=== PATIENT | male | born 1955 | race Caucasian/White ===

== ENCOUNTER 2017-10-22 16:23 | Emergency (ER) | payer OTHER ==
[~2017-10-22] VITALS: Ht 175.3 cm; Wt 86.2 kg
[~2017-10-22 16:23] MED LIST: ALTACE10 MG PO; ASPIR 8181 MG PO; CENTRUM SILVER1 EAC2 PO; CRESTOR10 MG PO; EFFIENT10 MG PO; FISH OIL 1,001000 M2 PO; PRILOSEC OTC20 MG PO; ZETIA10 MG PO
[2017-10-22] MEDS ORDERED: ZANTAC 150MG T150 MG PO (16:36)
[2017-10-22] MEDS ORDERED: NORVASC5 MG PO (16:37)
[2017-10-22 16:42] LABS: ABSOLUTE LYMPHOCYTES 1.5 thou/uL (0.8-5.3); ABSOLUTE MONOCYTES 0.4 thou/uL (0.0-1.2); BASOPHILS 0.6 %; EOSINOPHILS 0.4 %; HEMATOCRIT 45.6 % (42.0-52.0); HEMOGLOBIN 15.3 gm/dL (14.0-18.0); LYMPHOCYTES 21.5 %; MCH 30.1 pg (26.0-34.0); MCHC 33.5 g/dL (28.0-37.0); MCV 89.9 fL (80.0-100.0); MONOCYTES 5.4 %; MPV 8.5 fl. (7.2-11.1); NUCLEATED RBCS 0 /100WBC; PLATELET COUNT* 246 thou/uL (150-400); POLYS 72.1 %; RBC 5.07 mil/uL (4.50-6.00); RDW-CV 13.6 % (10.5-14.5)
[2017-10-22 16:51] LABS: ANION GAP 8 mmol/L (7-16); BUN 8 mg/dL (7-18); CALCIUM 9.5 mg/dL (8.5-10.1); CHLORIDE 103 mmol/L (98-107); CO2 31 mmol/L (21-32); CREATININE 1.1 mg/dL (0.6-1.3); GLUCOSE 100 mg/dL (70-99); POTASSIUM 3.6 mmol/L (3.5-5.1); SODIUM 142 mmol/L (136-145)
[2017-10-22 17:00] LABS: APTT 28.5 Seconds (25.0-31.3)
[2017-10-22 17:06] LABS: ALBUMIN 4.5 g/dL (3.4-5.0); ALKALINE PHOSPHATASE 89 U/L (46-116); LIPASE 182 U/L (73-393); MAGNESIUM 2.3 mg/dL (1.8-2.4); NT-PRO BRAIN NAT PEPTIDE 64 pg/mL (<300); SGOT 21 U/L (15-37); SGPT 31 U/L (30-65); TOTAL BILIRUBIN 0.5 mg/dL (<0.1-1.0); TOTAL PROTEIN 8.4 g/dL (6.4-8.2); TROPONIN-I LEVEL <0.06 ng/mL (<0.06)
[2017-10-22] MEDS ORDERED: NITROGLYCERIN0.4 MG SUBLING (17:26)
[2017-10-22 17:31] VITALS: BP 129/74
--- NOTE | 2017-10-23 11:17 | EKG ---
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
== END 2017-10-22 17:33 | disposition home or self-care (01) ==
LOC: M.ERS 16:23
PROVIDERS: Family Medicine
DX: R07.89 Other chest pain (principal); F10.99 Alcohol use, unspecified with unspecified alcohol-induced disorder; I10 Essential (primary) hypertension; Z88.5 Allergy status to narcotic agent

== ENCOUNTER → 2017-12-06 | Outpatient (CLI) | payer OTHER ==
[~2017-12-06] MED LIST changes: +NITROGLYCERIN0.4 MG SUBLING; +NORVASC5 MG PO; +ZANTAC 150MG T150 MG PO
== END ==
LOC: M.NUC 12:02
DX: R10.11 Right upper quadrant pain (principal)

== ENCOUNTER 2018-09-04 23:49 | Emergency (ER) | payer OTHER ==
[~2018-09-04] VITALS: Ht 175.3 cm; Wt 90.7 kg
[~2018-09-04 23:49] MED LIST changes: -PERCOCET 7.5-31 EACH PO; -ZETIA10 MG
[2018-09-05] MEDS ORDERED: ZETIA10 MG (00:04)
[2018-09-05 00:09] LABS: ABSOLUTE BASOPHILS 0.1 thou/uL (0.0-0.2); ABSOLUTE LYMPHOCYTES 2.2 thou/uL (0.8-5.3); ABSOLUTE MONOCYTES 0.8 thou/uL (0.0-1.2); ABSOLUTE NEUTROPHILS 8.3 thou/uL (1.6-8.1); BASOPHILS 0.8 %; EOSINOPHILS 0.4 %; HEMATOCRIT 42.4 % (42.0-52.0); LYMPHOCYTES 19.1 %; MCH 29.7 pg (26.0-34.0); MCHC 33.1 g/dL (28.0-37.0); MCV 89.7 fL (80.0-100.0); MONOCYTES 6.6 %; MPV 7.9 fl. (7.2-11.1); NUCLEATED RBCS 0 /100WBC; PLATELET COUNT* 339 thou/uL (150-400); POLYS 73.1 %; RBC 4.73 mil/uL (4.50-6.00); RDW-CV 13.6 % (10.5-14.5); WBC 11.4 thou/uL (4.0-11.0)
[2018-09-05 00:24] LABS: ANION GAP 9 mmol/L (7-16); BUN 11 mg/dL (7-18); CALCIUM 9.1 mg/dL (8.5-10.1); CHLORIDE 100 mmol/L (98-107); CO2 31 mmol/L (21-32); GLUCOSE 107 mg/dL (70-99); SODIUM 140 mmol/L (136-145)
[2018-09-05 00:35] LABS: ALBUMIN 3.7 g/dL (3.4-5.0); ALKALINE PHOSPHATASE 132 U/L (46-116); LIPASE 222 U/L (73-393); NT-PRO BRAIN NAT PEPTIDE 195 pg/mL (<300); SGOT 48 U/L (15-37); SGPT 57 U/L (30-65); TOTAL BILIRUBIN 0.3 mg/dL (<0.1-1.0); TOTAL PROTEIN 7.9 g/dL (6.4-8.2); TROPONIN-I LEVEL <0.06 ng/mL (<0.06)
[2018-09-05] MEDS ORDERED: PERCOCET 7.5-31 EACH PO (01:50)
[2018-09-05 02:15] VITALS: BP 163/90
--- NOTE | 2018-09-05 14:26 | EKG ---
[place] [address] ELECTROCARDIOGRAM REPORT Name: MANJU LARA 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
== END 2018-09-05 02:15 | disposition home or self-care (01) ==
LOC: M.ERS 23:49
PROVIDERS: Emergency Medicine
DX: S20.212A Contusion of left front wall of thorax, initial encounter (principal); I10 Essential (primary) hypertension; E78.00 Pure hypercholesterolemia, unspecified; Z88.5 Allergy status to narcotic agent; Z95.5 Presence of coronary angioplasty implant and graft; X58.XXXA Exposure to other specified factors, initial encounter; Y92.89 Other specified places as the place of occurrence of the external cause; Y93.89 Activity, other specified; Y99.8 Other external cause status

== ENCOUNTER → 2018-09-04 | Outpatient (CLI) | payer OTHER ==
[~2018-09-04] MED LIST changes: +PERCOCET 7.5-31 EACH PO; +ZETIA10 MG
== END ==
LOC: M.RAD 10:53
DX: J81.1 Chronic pulmonary edema (principal); R07.89 Other chest pain; Z95.5 Presence of coronary angioplasty implant and graft

== ENCOUNTER → 2020-07-13 | Day surgery (SDC) | payer OTHER ==
[~2020-07-13] MED LIST changes: +NORCO 5-325 TA1 EAC2 PO; +PERCOCET 7.5-31 EACH PO; +ZETIA10 MG
--- NOTE | ~2020-07-13 | OP ---
[facility] [address] [place] [address] OPERATIVE REPORT Name: MARCOMANJU Edward Room: [facility]#: [id number] Admission: 07/13/20 Attend Phys: Michele Garcia Discharge: Date of : 59 Report #: [id number] THIS REPORT FOR: //name// cc: Mel Benoit Bethany J. ~ CC: Mel Garcia DATE OF SERVICE: 07/13/2020 PREOPERATIVE DIAGNOSIS: Incarcerated epigastric hernia. POSTOPERATIVE DIAGNOSIS: Incarcerated epigastric hernia. OPERATION: Laparoscopic repair of incarcerated epigastric hernia with mesh. SURGEON: Michele Garcia MD ANESTHESIA: General. ESTIMATED BLOOD LOSS: Minimal. SPECIMEN: None. DESCRIPTION OF PROCEDURE: After informed consent was obtained, the patient was brought to the operating room and placed supine. SCDs were placed and working, preoperative antibiotics were administered, general anesthesia was induced. The abdomen was prepped and draped in the usual sterile fashion. A 5 mm incision was made in the left upper quadrant. A 5 mm trocar was placed under direct vision. Pneumoperitoneum was established. A left-sided 8 mm trocar and a right-sided 5 mm trocar was placed under direct vision. He had incarcerated preperitoneal fat and an epigastric hernia. Defect measured 1 cm. Just superior to this, there was a smaller 0.5 cm defect. All other preperitoneal fat was reduced. An 11 cm Bard Ventralight mesh was inserted. It was brought to the abdominal wall. It covered both defects widely. It was tacked into place with 30 absorbable tacks. I then placed a transfascial 2-0 Ethibond sutures superiorly in the midline of the mesh. The ports were then removed under direct vision. The skin was closed with 4-0 Monocryl. Incisions were sealed with Dermabond. COMPLICATIONS: [place] [address] OPERATIVE REPORT Name: MANJU LARA Room: [facility]#: [id number] Admission: 07/13/20 Attend Phys: Michele Garcia Discharge: Date of : 59 Report #: [id number] DISPOSITION: The patient was taken to recovery in satisfactory condition. By: [id number] Garcia MD /stacie
[2020-07-13 07:31] LABS: HEMATOCRIT 43.1 % (42.0-52.0); HEMOGLOBIN 14.8 gm/dL (14.0-18.0); MCHC 34.5 g/dL (28.0-37.0); MCV 92.7 fL (80.0-100.0); MPV 7.5 fl. (7.2-11.1); RBC 4.65 mil/uL (4.50-6.00); RDW-CV 13.5 % (10.5-14.5)
[2020-07-13 07:39] LABS: CALCIUM 8.9 mg/dL (8.5-10.1); CREATININE 1.3 mg/dL (0.6-1.3); POTASSIUM 4.2 mmol/L (3.5-5.1)
--- NOTE | 2020-07-13 14:24 | EKG ---
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
== END | disposition home or self-care (01) ==
LOC: M.LAB 07:02 → M.SUR 07:02
PROVIDERS: Internal Medicine Gastroenterology; ATTEND Surgery
DX: K43.6 Other and unspecified ventral hernia with obstruction, without gangrene (principal); I10 Essential (primary) hypertension; Z98.890 Other specified postprocedural states; Z79.899 Other long term (current) drug therapy; Z98.61 Coronary angioplasty status; Z87.891 Personal history of nicotine dependence; Z88.8 Allergy status to other drugs, medicaments and biological substances; Z20.828 Contact with and (suspected) exposure to other viral communicable diseases